=== PATIENT | female | born 2000 | race Caucasian/White ===

== ENCOUNTER 2024-06-27 15:13 | Emergency (ER) | payer SELFPAY ==
[2024-06-27] VITALS (12 sets, daily range): BP systolic 104–126; BP diastolic 58–64; PULSE 112–135; RESP 9–18; TEMP 36.4; O2SAT 96–100; BMI 23.0
[2024-06-27] MEDS: SODIUM CHLORIDE 0.9% 1,000 ML 1000 ML IV ×2 (15:50→16:21)
[2024-06-27 15:57] LABS: BUN Creatinine Ratio 13.2 (6-22); Blood Urea Nitrogen 9 mg/dL (7-17); Calcium 9.4 mg/dL (8.4-10.2); Carbon Dioxide 18 mmol/L (22-32); Chloride 103 mmol/L (98-107); Estimated Glomerular Filt Rate > 60 mL/min (>60); Ethanol (ETOH) < 10 mg/dL; Glucose 91 mg/dL (70-100); HEMOLYSIS < 15 (0-50); Lipase 50 U/L (23-300); Magnesium 1.8 mg/dL (1.6-2.3); Potassium 3.4 mmol/L (3.4-5.1); Sodium 138 mmol/L (137-145)
--- NOTE | 2024-06-27 15:57 | ED.NEUROSD ---
HPI - Neuro Symptoms/Deficit General Chief Complaint: Neuro Symptoms/Deficit Stated Complaint: sent by [place], numbness, shaking Time Seen by Provider: 06/27/24 15:27 Source: patient and family Mode of arrival: Wheelchair History of Present Illness HPI Narrative: 24-year-old female without any significant past medical history comes into the ED from walk-in clinic for evaluation of anxiety, muscle cramping, states that she drank a lot of alcohol yesterday was on her drive home started having a panic attack started hyperventilating and states that she started having spasming of her upper extremities, states that she went to the walk-in clinic was sent here for further evaluation treatment. Patient states that whenever she just drink alcohol she does have an exacerbation of her anxiety, at time of evaluation patient NIH of 0 states that when these symptoms started she was hyperventilating and whenever she feels like the spasming happens she started hyperventilating again. Patient denies any other symptoms such as chest pain shortness breath fever chills nausea vomiting abdominal pain or any other GI/ symptoms time. On Anticoagulants: No Related Data Previous Rx's Medication Instructions Recorded hydroxyzine HCl 10 mg tablet 10 mg PO Q8H PRN anxiety 1 week 06/27/24 #21 tabs Allergies Allergy/AdvReac Type Severity Reaction Status Date / Time No Known Drug Allergies Allergy Verified 06/27/24 15:18 Review of Systems Review of Systems Narrative: General: Denies fever, chills, weight loss HEENT: Denies headache, eye drainage, eye irritation, head trauma, sore throat, voice change Cardiovascular: Denies any chest pain, palpitations, shortness of breath, tachycardia Respiratory: Denies any shortness of breath, cough, wheeze, stridor GI/: Denies any abdominal pain, nausea, vomiting, diarrhea, bright red blood per rectum, melanotic stools, urinary frequency, urinary retention, dysuria, hematuria MSK: Positive bilateral upper extremity muscle spasming Denies any joint pain, muscle pains, swelling Skin: Denies any rashes, lesions, discoloration Neuro: Denies any headache, lightheadedness, dizziness, fainting, weakness Psych: Denies SI/HI Hematologic/Lymphatic On Anticoagulants: No Patient History Social History Smoking Status: Never smoker Smoking Status: Never smoker Exam Initial Vital Signs Initial Vital Signs: Vital Signs Temperature 97.5 F L 06/27/24 15:18 Pulse Rate 125 H 06/27/24 15:18 Respiratory Rate 18 06/27/24 15:18 Blood Pressure 126/64 06/27/24 15:18 Pulse Oximetry 100 06/27/24 15:18 Oxygen Delivery Method Room Air 06/27/24 15:18 Course Orders Ordered: ED Orders 06/27/24 15:28 EKG-12 Lead Stat 06/27/24 15:33 BMP [Basic Metabolic Panel] Stat CBC Auto Diff [Complete Blood Count AUTO DIFF] Stat ETOH [Ethanol (ETOH)] Stat Lactate (Lactic Acid) Stat Lipase Stat MAG [Magnesium] Stat 06/27/24 17:09 Lactate (Lactic Acid) Stat 06/27/24 17:24 Urine Microscopic Stat Discontinued Medications Sodium Chloride (Normal Saline 0.9%) 1,000 mls @ 1,000 mls/hr IV BOLUS ONE Stop: 06/27/24 16:26 Last Infusion: 06/27/24 16:21 Dose: Infused Documented By: Admin: 06/27/24 15:50 Dose: 1,000 mls/hr Documented By: TC Sodium Chloride (Normal Saline 0.9%) 1,000 mls @ 1,000 mls/hr IV BOLUS ONE Stop: 06/27/24 17:12 Last Infusion: 06/27/24 16:54 Dose: Infused Documented By: Admin: 06/27/24 16:21 Dose: 1,000 mls/hr Documented By: TC Lorazepam (Lorazepam 2 Mg/Ml Inj) 1 mg IV NOW ONE Stop: 06/27/24 16:12 Last Admin: 06/27/24 16:22 Dose: 1 mg Documented By: TC Vital Signs Vital signs: Vital Signs - 8 hr 06/27/24 15:18 06/27/24 17:20 06/27/24 17:21 Temperature 97.5 F L Pulse Rate 125 H 130 H Respiratory Rate 18 Blood Pressure 126/64 112/64 Pulse Oximetry 100 98 Oxygen Delivery Method Room Air 06/27/24 17:21 06/27/24 17:22 06/27/24 17:22 Temperature Pulse Rate 135 H 135 H Respiratory Rate 12 Blood Pressure 107/59 L Pulse Oximetry 98 98 Oxygen Delivery Method 06/27/24 17:30 Temperature Pulse Rate 121 H Respiratory Rate 16 Blood Pressure Pulse Oximetry 96 Oxygen Delivery Method MDM - Neuro Symptoms/Deficit Differential Diagnosis Differential diagnosis: Likely other (Electrolyte abnormality, acute distress, anxiety, alcohol abuse) Lab Data 06/27/24 15:33 06/27/24 15:33 Labs: Lab Results 06/27/24 06/27/24 06/27/24 Range/Units 15:33 17:09 17:24 WBC 13.3 H (4.5-11.0) X10^3/uL RBC 4.69 (4.0-5.2) X10^6/uL Hgb 14.1 (12.0-16.0) g/dL Hct 41.9 (36-46) % MCV 89.2 (80-100) fL MCH 30.0 (26-34) PG MCHC 33.6 (30-36) % RDW 12.7 (11.6-14.8) % Plt Count 307 (150-400) X10^3/uL Neut % (Auto) 74.1 (50-75) % Lymph % (Auto) 18.4 L (25-40) % Spink % (Auto) 5.8 (3-14) % Eos % (Auto) 1.0 L (2-4) % Baso % (Auto) 0.7 (0-2) % Neut # (Auto) 9900 H (9310-6391) /uL Lymph # (Auto) 2500 (3716-8055) /uL Spink # (Auto) 800 (0-900) /uL Eos # (Auto) 100 (0-450) /uL Baso # (Auto) 100 (0-100) /uL Sodium 138 (137-145) mmol/L Potassium 3.4 (3.4-5.1) mmol/L Chloride 103 (98-107) mmol/L Carbon Dioxide 18 L (22-32) mmol/L BUN 9 (7-17) mg/dL Creatinine 0.68 (0.52-1.04) mg/dL Estimated GFR > 60 (>60) mL/min BUN/Creatinine Ratio 13.2 (6-22) Glucose 91 (70-100) mg/dL Lactate 5.6 H* 1.1 (0.7-2.1) mmol/L Calcium 9.4 (8.4-10.2) mg/dL Magnesium 1.8 (1.6-2.3) mg/dL Lipase 50 (23-300) U/L Urine RBC None seen (0-5/HPF) Urine WBC 0-1/hpf (0-5/HPF) Ur Squamous Epith Cells 0-1 /hpf (0-5/HPF) Urine Bacteria Moderate (10-30) H (None) Ur Culture Indicated? Cult not indicated Vol Urine Centrifuged 10ml (spun) Ethyl Alcohol < 10 ( - 10) mg/dL Point of Care Testing Test Results Negative Urine Dip Bedside Urine Glucose Negative Bedside Urine Bilirubin - Negative Bedside Urine Ketone +++ 80 Urine Specific [place] 1.015 Bedside Urine Occult Blood - Negative Bedside Urine pH 6.5 Bedside Urine Protein - Negative Bedside Urine Urobilinogen - Negative Bedside Urine Nitrite - Negative Bedside Urine Leukocytes - Negative Esterase MDM Narrative Medical decision making narrative: 34-year-old female without any significant past medical history comes into the ED from walk-in clinic for evaluation of muscle spasms, she states that she drank alcohol yesterday whenever this happens she gets panic attacks, states that today she was driving home started having a panic attack started hyperventilating started having spasming/contractures of her upper extremities, this has been intermittent nature and therefore was instructed to come into the ED for further evaluation treatment. On exam patient without any focal deficits, tearful, patient was given 1 mg IV Ativan with improvement of symptoms, lab work unremarkable, symptoms more likely secondary to muscle spasms/contracture secondary to hyperventilation syndrome. Patient was given strict return precautions verbalized understanding of this agrees to being discharged home with outpatient follow up Discharge Plan Departure Patient Disposition: Home Clinical Impression: Acute hyperventilation syndrome Activity Restrictions/Additional Instructions: Please follow up with primary care Please read the discharge instructions sheet carefully and bring all papers to all doctor follow-up visits, as it may contain information that your doctor may want to see. Disease processes change and evolve, if your symptoms worsen or if you develop any new symptoms that are concerning to you please return for evaluation. Your evaluation today does not show any evidence of any life-threatening/serious illnesses requiring admission to the hospital or surgery. Please follow-up with your doctor for re-evaluation in approximately 1 day. Seek immediate medical attention for any worrisome symptoms. *If you do not have a primary care provider please contact the [facility] Resource line at [phone]. They will ask some questions about your medical history and help get you set up with a doctor in the community. Prescriptions: New hydroxyzine HCl 10 mg tablet 10 mg PO Q8H PRN (Reason: anxiety) 7 Days Qty: 21 0RF Referrals: Miscellaneous,Doctor, MD [Primary Care Provider] - Stand Alone Forms: Patient Portal/API/Survey
[2024-06-27 16:00] LABS: Lactate (Lactic Acid) 5.6 mmol/L (0.7-2.1)
[2024-06-27 16:02] LABS: Add Manual Diff / Slide Review NO; Basophils Absolute Auto 100 /uL (0-100); Basophils Percent Auto 0.7 % (0-2); Eosinophils Absolute Auto 100 /uL (0-450); Hematocrit 41.9 % (36-46); Hemoglobin 14.1 g/dL (12.0-16.0); Lymphocytes Absolute Auto 2500 /uL (1100-4500); Lymphocytes Percent Auto 18.4 % (25-40); Mean Corpuscular HGB Conc 33.6 % (30-36); Mean Corpuscular Volume 89.2 fL (80-100); Monocytes Absolute Auto 800 /uL (0-900); Monocytes Percent Auto 5.8 % (3-14); Neutrophils Absolute Auto 9900 /uL (1500-7000); Neutrophils Percent Auto 74.1 % (50-75); Platelet Count 307 X10^3/uL (150-400); Red Blood Cell Count 4.69 X10^6/uL (4.0-5.2); Red Cell Distribution Width 12.7 % (11.6-14.8); White Blood Cell Count 13.3 X10^3/uL (4.5-11.0)
[2024-06-27] MEDS: LORazepam 2 MG/ML INJ 1 MG IV (16:22)
[2024-06-27 17:17] LABS: Reflexed Lactate in 2 Hours Y
[2024-06-27 17:27] LABS: Lactate (Lactic Acid) 1.1 mmol/L (0.7-2.1)
[2024-06-27 17:57] LABS: Bacteria Urine Moderate (10-30); RBC Urine None Seen (0-5/HPF); Squamous Epithelial Cell Urine 0-1 /HPF (0-5/HPF); Urine Volume 10mL (spun); WBC Urine 0-1/HPF (0-5/HPF)
[2024-06-27 17:58] LABS: Culture Indicated Urine Cult Not Indicated
== END 2024-06-27 20:16 | disposition home or self-care (01) ==
PROVIDERS: Emergency Provider Student in an Organized Health Care Education/Training Program
DX: F45.8 Other somatoform disorders (principal); M62.838 Other muscle spasm; F41.0 Panic disorder [episodic paroxysmal anxiety]
CPT/HCPCS: 80048; 80320; 81003; 81015; 81025; 83605; 83690; 83735; 85025; 96361; 96374; 99283; 99284; J2060

== ENCOUNTER → 2024-09-21 09:47 | Outpatient (CLI) | payer OTHER, SELFPAY ==
[2024-09-21 10:52] LABS: Add Manual Diff / Slide Review NO; Basophils Absolute Auto 0 /uL (0-100); Basophils Percent Auto 0.8 % (0-2); Eosinophils Absolute Auto 100 /uL (0-450); Eosinophils Percent Auto 2.1 % (2-4); Hematocrit 41.7 % (36-46); Hemoglobin 14.2 g/dL (12.0-16.0); Lymphocytes Absolute Auto 1300 /uL (1100-4500); Lymphocytes Percent Auto 21.9 % (25-40); Mean Corpuscular Hemoglobin 30.3 PG (26-34); Mean Corpuscular Volume 89.4 fL (80-100); Monocytes Absolute Auto 500 /uL (0-900); Monocytes Percent Auto 7.8 % (3-14); Neutrophils Absolute Auto 4000 /uL (1500-7000); Neutrophils Percent Auto 67.4 % (50-75); Platelet Count 227 X10^3/uL (150-400); Red Blood Cell Count 4.67 X10^6/uL (4.0-5.2); Red Cell Distribution Width 12.6 % (11.6-14.8); White Blood Cell Count 5.9 X10^3/uL (4.5-11.0)
[2024-09-21 11:07] LABS: Alanine Aminotransferase 16 IU/L (<35); Albumin 4.9 g/dL (3.5-5.0); Albumin Globulin Ratio 1.6 (1.0-2.8); Alkaline Phosphatase 44 U/L (38-126); Aspartate Aminotransferase 21 IU/L (14-36); BUN Creatinine Ratio 9.1 (6-22); Bilirubin Total 1.2 mg/dL (0.2-1.3); Blood Urea Nitrogen 6 mg/dL (7-17); Calcium 9.1 mg/dL (8.4-10.2); Carbon Dioxide 25 mmol/L (22-32); Chloride 104 mmol/L (98-107); Estimated Glomerular Filt Rate > 60 mL/min (>60); Glucose 89 mg/dL (70-99); HEMOLYSIS < 15 (0-50); Potassium 4.1 mmol/L (3.4-5.1); Sodium 140 mmol/L (137-145); Total Protein 7.9 g/dL (6.3-8.2)
[2024-09-21 11:38] LABS: TSH w/ Reflex to FT4 0.42 uIU/mL (0.47-4.68)
[2024-09-21 11:39] LABS: Ferritin 19 ng/mL (6-137)
[2024-09-21 13:17] LABS: Free T4, Direct Thyroxine 0.98 ng/dL (0.78-2.19)
== END ==
PROVIDERS: PCP Family Medicine; Referring Provider Family Medicine; Visit Provider Family Medicine
DX: F41.1 Generalized anxiety disorder (principal); F41.0 Panic disorder [episodic paroxysmal anxiety]; Z82.49 Family history of ischemic heart disease and other diseases of the circulatory system
CPT/HCPCS: 36415; 80053; 82728; 84439; 84443; 85025